=== PATIENT | male | born 1985 | race Caucasian/White ===

== ENCOUNTER 2020-06-25 10:08 | Emergency (ER) | payer OTHER ==
[~2020-06-25] VITALS: Ht 177.8 cm; Wt 77.1 kg
[2020-06-25 10:15] VITALS: BP 121/85
--- NOTE | 2020-06-25 10:15 | NUR ---
ER DISCHARGE NOTE: Patient is cleared to be discharged per ERMD, pt is aox4, on room air, with stable vital signs. pt was given dc and prescription instructions, pt was able to verbalize understanding, pt id band removed without complications. pt is able to ambulate with steady gait. pt took all belongings.
--- NOTE | 2020-06-25 10:15 | NUR ---
Note tatianna in EDM - 06/25/20 at 1136 by [facility] ED Nurse Note: PT walked in to ed for c/o rashes to under left arm. Pt had a virtual doctor visit and was told by her doctor to come to ED due to the rash may be shingles.
[2020-06-25] MEDS ORDERED: ACYCLOVIR800 MG ORAL (10:32)
[2020-06-25 11:15] VITALS: BP 118/86
--- NOTE | 2020-06-25 11:15 | NUR ---
ED Nurse Note: PT walked in to ed for c/o rashes to under left arm. Pt had a virtual doctor visit and was told by her doctor to come to ED due to the rash may be shingles.
--- NOTE | 2020-06-27 12:02 | Emergency Room Report ---
History of Present Illness General Chief Complaint: Skin Rash/Abscess Source: Patient Present Illness HPI Patient is a 34-year-old male presents for increased skin rash. Patient has been having increased itchiness to the left side of his chest. Denies any fever. Denies any significant pain. No recent trauma. Had recently been seen by telemedicine appointment and was told that he might have shingles. Denies any other locations of rash. Rash on the acute onset. Allergies: Coded Allergies: CEPHALEXIN (Verified Allergy, Unknown, 06/25/20) COVID-19 Screening Contact w/high risk pt: No Experienced COVID-19 symptoms?: No COVID-19 Testing performed HEEL MOLDER: No Patient History Past Medical History: see triage record Reviewed Nursing Documentation: PMH: Agreed; PSxH: Agreed Nursing Documentation-PMH Past Medical History: No Stated History Review of Systems All Other Systems: negative except mentioned in HPI Physical Exam Vital Signs Date Time Temp Pulse Resp B/P (MAP) Pulse Ox O2 Delivery O2 Flow Rate FiO2 06/25/20 10:13 97.9 80 17 121/85 (97) 95 Room Air General Appearance: well appearing, no apparent distress, alert, GCS 15 Head: normocephalic, atraumatic ENT: hearing grossly normal, normal voice Neck: full range of motion, supple Respiratory: no respiratory distress, speaking full sentences Musculoskeletal: normal inspection, no calf tenderness Neurologic: alert, motor strength/tone normal, associate curator III-XII nml as tested, normal gait Psychiatric: mood/affect normal Skin: no rash, other - Rash to the left side of the chest wall with discrete vesicular lesions in a patchy distribution Medical Decision Making Diagnostic Impression: Primary Impression: Shingles rash ER Course Patient presented for skin rash. Differential diagnosis include was not limited to shingles, contact dermatitis, insect bites among others. Patient has a benign exam and does not appear to require any imaging or laboratory testing at this time. Patient's rash appears to be most consistent with shingles. Patient was advised to maintain contact isolation precautions as this was infectious via contact. He was advised to keep the rash covered. He was advised if the rash spreads that this may be something other than shingles. Patient is advised to return if he had any worsening conditions or other concerns. He was advised wound care. He is given prescription for acyclovir. He was advised to have the area rechecked in 2 to 3 days. This medical record is generated with [employer] floorworker software. There may be some floorworker discrepancies related to use of this software Last Vital Signs Date Time Temp Pulse Resp B/P (MAP) Pulse Ox O2 Delivery O2 Flow Rate FiO2 06/25/20 11:15 98.0 85 16 118/86 97 Room Air Status: improved Disposition: HOME, SELF-CARE Condition: Stable Scripts Acyclovir* (ZOVIRAX*) 800 Mg Tablet 800 MG ORAL FIVE TIMES A DAY, #35 TAB Prov: Jim Johnson MD 06/25/20 Referrals: NOT CHOSEN IPA/,REFERRING (PCP) Patient Instructions: Shingles, [id number] Additional Instructions: Follow up for recheck in 2-3 days. Return if worse. Jim Johnson MD Jun 27, 2020 12:02
== END 2020-06-25 11:15 | disposition home or self-care (01) ==
LOC: EMR 10:40
DX: B02.9 Zoster without complications (principal); Z88.8 Allergy status to other drugs, medicaments and biological substances
CPT/HCPCS: 99282